=== PATIENT | male | born 1940 | race Caucasian/White ===

== ENCOUNTER 2019-09-02 18:53 | Inpatient (IN) | payer OTHER, SELFPAY ==
[~2019-09-02] VITALS: Ht 175.3 cm; Wt 90.3 kg
[2019-09-02 19:25] VITALS: BP_SYST 190
--- NOTE | 2019-09-02 19:25 | NUR ---
Patient to ER bed 3 to gown for evaluation. Side rails up.
--- NOTE | 2019-09-02 19:30 | NUR ---
PT BIB BLS FROM HOME A&O X4 C/O OF LOWER ABDOMINAL PAIN 8/10 FROM INABILITY TO URINATE. LAST TIME PT URINATED WAS MIDNIGHT. PT DRANK 4 WATER BOTTLES TO TRY TO HELP TO GO. PT HX OF NECK CANCER AND DIABETES. WILL CONTINUE OT MONITOR.
--- NOTE | 2019-09-02 20:00 | NUR ---
# 16 FR Zapata catheter with use of sterile technique. Immediate return of 1000 cc BLOOD TINGED urine noted. Bedside drainage bag placed below level of bladder. Urine sample collected and sent to lab. Pt tolerated procedure WELL. Patient unable to toilet self.
--- NOTE | 2019-09-02 20:03 | NUR ---
ER Dr. hubbard at bedside examining patient.
--- NOTE | 2019-09-02 20:05 | NUR ---
Patient transported to radiology via RNEY, accompanied by
--- NOTE | 2019-09-02 20:20 | NUR ---
PT RETURNED FROM CT. PLACED ON MONITOR.
[2019-09-02 20:48] LABS: BASOPHILS % (AUTO) 0.1 % (0.0-2.0); HEMATOCRIT 28.4 % (36-54); HEMOGLOBIN 9.5 g/dL (14.0-18.0); LYMPHOCYTES # (AUTO) 0.6 K/uL (1.0-5.5); MEAN CORPUSCULAR HEMOGLOBIN 34 pg (27-31); MEAN CORPUSCULAR HGB CONC 33 % (32-36); MEAN CORPUSCULAR VOLUME 103 fL (79.0-98.0); MONOCYTES # (AUTO) 0.4 K/uL (0.0-1.0); MONOCYTES % (AUTO) 5.2 % (1.7-9.3); NEUTROPHILS % (AUTO) 86.7 % (40.0-70.0); PLATELET COUNT (AUTO) 127 K/uL (130-430); RED BLOOD CELL COUNT(AUTO) 2.77 MIL/uL (4.2-6.2); RED CELL DISTRIBUTION WIDTH 15.3 % (9.0-15.0); WHITE BLOOD COUNT (AUTO) 6.9 K/uL (4.8-10.8)
--- NOTE | 2019-09-02 20:50 | NUR ---
SPOKE WITH MRS. HOPKINS AND UPDATED HER ON STATUS OF PATIENT PER PATIENT REQUEST. PHONE NUMBER IS
[2019-09-02 21:00] LABS: PROTHROMBIN TIME 9.7 SECS (9.5-12.5)
[2019-09-02] MEDS ORDERED: insulin (21:34)
--- NOTE | 2019-09-02 21:34 | NUR ---
Medication reconciliation completed with information provided by patient. Any prior medication reconciliation on file was reviewed and corrected.
--- NOTE | 2019-09-02 21:42 | NUR ---
RECEIVED ORDERS FROM DR. HAND.
[2019-09-02] MEDS ORDERED: metroNIDAZOLE 500 mg/NS 100 ML IV ONE (21:45)
[2019-09-02] MEDS ORDERED: PIPERACILLIN/TAZO 3.375 GM in NS 50 ML IV ONE (21:45)
[2019-09-02] MEDS ORDERED: D5LR 1,000 ML IV ONE (21:45)
--- NOTE | 2019-09-02 21:51 | NUR ---
CALLED FOR [employer].
--- NOTE | 2019-09-02 21:55 | NUR ---
Patient's code status is FULL CODE paperwork completed and placed in chart.
--- NOTE | 2019-09-02 21:59 | NUR ---
Dr. Morgan at bedside
--- NOTE | 2019-09-02 22:00 | NUR ---
# 20 gauge angiocath placed to RAC. Use of asceptic technique. Opsite placed over site. Blood return noted. Blood CULTURES for lab drawn from site. Flushed with 10 cc of normal saline. No evidence of infiltration noted. Patient tolerated well.
--- NOTE | 2019-09-02 22:10 | NUR ---
Blood cultures drawn, prior to administration of antibiotic.
[2019-09-02] MEDS ORDERED: PIPERACILLIN/TAZOBACTAM 3.375 GM/VIAL (ZOSYN) IV ONE (22:24)
--- NOTE | 2019-09-02 22:30 | NUR ---
COVID AND MRSA SWABS COLLECTED AND SENT TO LAB.
--- NOTE | 2019-09-02 22:40 | NUR ---
Patient will be admitted to care of DR. HAND. Admitted to MEDSURG unit. Will go to room 103A. Belongings list completed. Complete and up to date summary report printed. SBAR report given TO DENIA CORTEZ at bedside with opportunity for questions.
--- NOTE | 2019-09-02 22:41 | NUR ---
Transfer to [facility] via protocol. Licensed nurse present. IV present no signs or symptoms of infiltration.
--- NOTE | 2019-09-02 22:48 | NUR ---
SPOKE WITH , MRS. GUNTER TO UPDATE HER PT IS ADMITTED AND GOING TO ROOM 103A.
--- NOTE | 2019-09-02 22:51 | NUR ---
FLAGYL 500MG AND IV FLUIDS D5LR ENDORSED TO NURSE ON FLOOR TO ADMINISTER.
[2019-09-02 22:58] VITALS: BP_SYST 138
--- NOTE | 2019-09-02 22:58 | NUR ---
ADMISSION NOTE Received patient from ER via gurney. Patient admitted with diagnosis of Abdominal Pain. Patient is awake, alert, oriented X4. Patient oriented to hospital room, call light, toileting, pain management and safety-teach back done. Personal belongings checked and Belongings List documented. Call light within reach.
--- NOTE | 2019-09-02 23:00 | NUR ---
MD ROUNDS DR. HAND SEEN AND ASSESSED PATIENT.
[2019-09-02] MEDS ORDERED: metroNIDAZOLE 500 mg/NS 200 ML IV ONE (23:34)
--- NOTE | 2019-09-02 23:54 | NUR ---
MED PASS/ BS 193/ IVF HUNG DUE MEDICATION GIVEN AT THIS TIME. BS CHECKED WAS 193, 2 UNITS OF REGULAR INSULIN WAS GIVEN. PATIENT WAS EDUCATED ON PURPOSE, SIDE EFFECT AND BENEFITS OF THE MEDICATIONS THAT BEEN GIVEN, PATIENT ABLE TO VERBALIZED UNDERSTANDING. IVF INFUSING WELL, PATENCY NOTED. CALL LIGHT WITHIN REACH. SAFETY PRECAUTIONS IN PLACE. WILL CONTINUE TO MONITOR PATIENT.
[2019-09-02] MEDS: INSULIN REGULAR, HUMAN 100 UNITS/ML, 10 ML VIAL (humuLIN R) SUBCUT PRN (23:59)
[2019-09-03] VITALS: BP_SYST 110
[2019-09-03] MEDS ORDERED: MORPHINE 4 MG/ML INJ. SYRINGE IVP PRN
[2019-09-03] MEDS ORDERED: NALOXONE HCL 0.4 MG/ML AMP (NARCAN) IVP PRN ×2
[2019-09-03] MEDS ORDERED: MORPHINE 2 MG/ML INJ. SYRINGE IVP PRN ×2
[2019-09-03] MEDS ORDERED: ZOLPIDEM TARTRATE 5 MG TABLET PO PRN
[2019-09-03] MEDS ORDERED: ONDANSETRON HCL 4 MG/2 ML VIAL IVP PRN
[2019-09-03 00:18] LABS: BILIRUBIN,URINE NEGATIVE (NEGATIVE); BLOOD, URINE 3+ (NEGATIVE); CLARITY/URINE CLOUDY (CLEAR); COLOR,URINE RED (YELLOW); GLUCOSE,URINE TRACE (NEGATIVE); KETONES,URINE 1+ (NEGATIVE); LEUKOCYTE ESTERASE ,URINE 2+ (NEGATIVE); NITRITE, URINE POSITIVE (NEGATIVE); PROTEIN URINE 3+ (NEGATIVE)
[2019-09-03 00:26] VITALS: BP_SYST 138
[2019-09-03 00:33] LABS: BACTERIA,URINE MODERATE /HPF (None Seen); RBC,URINE >100 /HPF (0-3); WBC,URINE >100 /HPF (0-3)
[2019-09-03 00:35] LABS: ANION GAP 8 (5-15); CALCIUM 8.7 mg/dL (8.4-11.0); CHLORIDE 98 mmol/L (98-107); CREATININE 1.63 mg/dL (0.55-1.30); GLUCOSE 202 mg/dL (70-99); POTASSIUM 3.9 mmol/L (3.5-5.1); SODIUM SERUM 130 mmol/L (136-145); UREA NITROGEN, BLOOD 27 mg/dL (8-21)
[2019-09-03 00:39] LABS: ALANINE AMINOTRANSFERASE 24 U/L (12-78); ALBUMIN 3.1 g/dL (3.4-4.8); ASPARTATE AMINOTRANSFERASE 21 U/L (10-37); PHOSPHORUS 4.7 mg/dL (2.7-4.5); TOTAL BILIRUBIN 0.9 mg/dL (0.0-1.0)
--- NOTE | 2019-09-03 01:00 | NUR ---
SPOKE WITH MD DR. HAND MADE AWARE OF PATIENT OF PATIENTS COMPLAINT, BURNING SENSATION IN THE PRIVATE AREA AFTER GIVING IVF' PATIENT VERBALIZED TO STOP THE FLUID. PATIENT WAS EDUCATED ON PURPOSE AND BENEFITS OF D5LR (IVF) PATIENT STILL WANT TO STOP IV. MD MADE AWARE, DR. HAND VERBALIZED TO CONTINUE TO IVF. MD GAVE NEW ORDERS. WILL CARRY OUT. PATIENT WAS RE EDUCATED ON THE PURPOSE AND BENEFITS AND THE DOCTOR ORDERED. PATIENT ABLE TO VERBALIZED UNDERSTANDING. PATIENT OK TO CONTINUE IVF.
[2019-09-03] MEDS ORDERED: PHENAZOPYRIDINE HCL 100 MG TABLET PO ONE (01:15)
[2019-09-03] MEDS ORDERED: PHENAZOPYRIDINE HCL 100 MG TABLET ONE (01:30)
--- NOTE | 2019-09-03 02:20 | NUR ---
RN ROUNDS PATIENT ASLEEP AT THIS TIME. NO SIGNS OF RESPIRATORY DISTRESS AND DISCOMFORT NOTED. BREATHING EVEN AND UNLABORED. ON ROOM AIR TOLERATING WELL. IVF INFUSING WELL. SCD'S OPERATING WELL. MILLARD CATHETER, DRAINING BY GRAVITY. CALL LIGHT WITHIN REACH. SAFETY PRECAUTIONS IN PLACE. WILL CONTINUE TO MONITOR PATIENT.
--- NOTE | 2019-09-03 04:22 | NUR ---
Paged Dr. Terrazas for patient Ananth, Logan for low heart rate.
--- NOTE | 2019-09-03 04:23 | NUR ---
RN ROUNDS/ DECREASE HEART RATE PATIENT HEART SUSTAINING AT 40-43 AT THIS TIME. CHARGE NURSE MADE AWARE. WHEN PATIENT WAS AWAKEN, PATIENT RESPONDED WITH EYES CLOSED AND VERBALIZED ''I AM OK''. VITAL SIGNS TAKEN 116/60, O2 SAT OF 96%. RR 18, HR 43. AWAITING FOR MD CALL BACK. PATIENT HAS NO SIGNS OF RESPIRATORY DISTRESS NOTED. DENIES PAIN AT THIS TIME. IVF INFUSING WELL. CALL LIGHT WITHIN REACH. SAFETY PRECAUTIONS IN PLACE. WILL CONTINUE TO MONITOR PATIENT.
[2019-09-03] MEDS: metroNIDAZOLE 500 mg/NS 100 ML IV SCH ×3 (05:05→22:46)
--- NOTE | 2019-09-03 05:39 | NUR ---
SPOKE WITH MD/ TRANSFER TO TELE MD MADE AWARE OF PATIENTS' DECREASE HEART RATE. MD ORDERED PUT PATIENT CONTINUOS HEART MONITOR. MD ORDERED TRANSFER TO TELE. CHARGE NURSE MADE AWARE.
[2019-09-03] MEDS: INSULIN REGULAR, HUMAN 100 UNITS/ML, 10 ML VIAL (humuLIN R) SUBCUT PRN ×4 (06:12→20:18)
--- NOTE | 2019-09-03 06:27 | NUR ---
CLOSING NOTE/ BS 194 PATIENT AOX4. NO SIGNS OF RESPIRATORY DISTRESS AND DISCOMFORT NOTED. BREATHING EVEN AND UNLABORED. ON ROOM AIR, TOLERATING WELL. BS CHECKED DONE JX=152, 2 UNITS OF REGULAR INSULIN GIVEN FOR COVERAGE. PATIENT WAS EDUCATED ON MEDICATION THAT WAS GIVEN, PATIENT ABLE TO VERBALIZED UNDERSTANDING. IVF INFUSING WELL. MILLARD CATHETER, ATTACHED AND SECURED. DRAINING BY GRAVITY. SCD'S OPERATING WELL. CALL LIGHT WITHIN REACH. BED LOCKED AND IN LOWEST POSITION. SAFETY PRECAUTIONS IN PLACE. ALL NEEDS MET THROUGHOUT THE SHIFT. WILL CONTINUE TO MONITOR UNTIL ENDORSE TO ONCOMING SHIFT NURSE FOR CONTINUITY OF CARE.
--- NOTE | 2019-09-03 07:29 | NUR ---
CONSULT SURGERY GROSS HEMATURIA DR THAKUR,MALATHI [phone] DR THAKUR WAS NOTIFIED OF CONSULT
--- NOTE | 2019-09-03 07:30 | NUR ---
AM ROUNDS: PATIENT LYING ON THE BED,AWAKE,ALERT AND ORIENTED X3. IV FLUIDS RUNNING AT RIGHT AC INTACT. NOTHING BY MOUTH FOR NOW.MILLARD DRAINING REDDISH COLOR URINE. CALL LIGHT WITH IN REACH. BED LOCKED AT LOWEST [id number]. NOT IN ANY DISTRESS.
[2019-09-03 07:31] LABS: BASOPHILS % (AUTO) 0.1 % (0.0-2.0); EOSINOPHILS % (AUTO) 0.7 % (0.0-4.0); HEMATOCRIT 25.9 % (36-54); HEMOGLOBIN 8.8 g/dL (14.0-18.0); LYMPHOCYTES % (AUTO) 24.6 % (20.5-51.5); MEAN CORPUSCULAR HEMOGLOBIN 35 pg (27-31); MEAN CORPUSCULAR HGB CONC 34 % (32-36); MEAN CORPUSCULAR VOLUME 103 fL (79.0-98.0); MONOCYTES # (AUTO) 0.4 K/uL (0.0-1.0); NEUTROPHILS # (AUTO) 2.8 K/uL (1.8-7.7); NEUTROPHILS % (AUTO) 65.6 % (40.0-70.0); PLATELET COUNT (AUTO) 123 K/uL (130-430); RED BLOOD CELL COUNT(AUTO) 2.52 MIL/uL (4.2-6.2); RED CELL DISTRIBUTION WIDTH 15.6 % (9.0-15.0); RETICULOCYTE COUNT 2.8 % (0.5-1.5); WHITE BLOOD COUNT (AUTO) 4.2 K/uL (4.8-10.8)
[2019-09-03 08:23] LABS: ALANINE AMINOTRANSFERASE 20 U/L (12-78); ALBUMIN 2.9 g/dL (3.4-4.8); ANION GAP 5 (5-15); ASPARTATE AMINOTRANSFERASE 21 U/L (10-37); CALCIUM 8.6 mg/dL (8.4-11.0); CHLORIDE 103 mmol/L (98-107); CREATININE 1.86 mg/dL (0.55-1.30); GLUCOSE 205 mg/dL (70-99); PHOSPHORUS 4.8 mg/dL (2.7-4.5); POTASSIUM 3.9 mmol/L (3.5-5.1); SODIUM SERUM 137 mmol/L (136-145); TOTAL BILIRUBIN 0.7 mg/dL (0.0-1.0); UREA NITROGEN, BLOOD 29 mg/dL (8-21)
[2019-09-03 08:27] VITALS: BP_SYST 115
[2019-09-03] MEDS: PHENAZOPYRIDINE HCL 100 MG TABLET PO SCH ×3 (09:14→20:15)
[2019-09-03] MEDS: CIPROFLOXACIN LACT 400 MG/D5W 200 ML IV SCH ×2 (09:15→20:15)
[2019-09-03] MEDS: D5LR 1,000 ML IV SCH ×3 (09:16→23:10)
[2019-09-03] MEDS ORDERED: TAMSULOSIN HCL 0.4 MG CAP PO ONE (10:15)
--- NOTE | 2019-09-03 10:34 | NUR ---
CONSULTATION PAGED REASON FOR CONSULTATION:URINARY RETENTION WAS CONSULT CALLED?Y PERSON WHO WAS NOTIFIED:DRAKE CONSULTING PHYSICIAN:ANTONY FOSS GREASE MAN SPECIALTY:UROLOGY GREASE MAN PHONE NUMBER:[phone] ORDERING PHYSICIAN:RUI NOLASCO
[2019-09-03 11:29] VITALS: BP_SYST 119
--- NOTE | 2019-09-03 12:01 | NUR ---
Blood Sugar: Blood sugar taken,with insulin given per sliding scale.
--- NOTE | 2019-09-03 14:10 | NUR ---
RN ROUNDS: PATIENT ON HIGH WU'S ,EATING LUNCH. NO DISTRESS.
[2019-09-03 15:34] VITALS: BP_SYST 128
--- NOTE | 2019-09-03 15:46 | NUR ---
CATHETER SALINE IRRIGATION: DR Luis Fernando LOOMIS CAME AND DID 60MIL SALINE IRRIGATION TO THE MILLARD CATHETER.URINE STILL RED IN COLOR BUT FLOWING WELL.
--- NOTE | 2019-09-03 17:30 | NUR ---
BLOOD SUGAR: BLOOD SUGAR TAKEN,WITH INSULIN GIVEN PER SLIDING SCALE. NO PROBLEM.
--- NOTE | 2019-09-03 18:53 | NUR ---
CLOSING NOTES: PATIENT ATE DINNER WELL. MILLARD STILL DRAINING REDDISH COLOR URINE,FLOWING WELL.CALL LIGHT WITH IN REACH. BED LOCKED AT LOWEST POSITION. CONDITION GUARDED.
--- NOTE | 2019-09-03 19:15 | NUR ---
Initial Notes: Received report from dayshift RN. Patient is in bed, watching TV. No acute distress. Breathing is even and nonlabored on room air. IV site is patent and intact. IV fluids infusing as ordered. Zapata draining clear, light red urine to gravity. Bed is locked at lowest position. Side rails up. Call light is with patient. Safety and fall precautions in place. Will continue plan of care.
[2019-09-03 20:00] VITALS: BP_SYST 128
[2019-09-03] MEDS: TAMSULOSIN HCL 0.4 MG CAP PO SCH (20:15)
--- NOTE | 2019-09-03 21:30 | NUR ---
Rounds: Patient in bed, watching TV. No signs of acute distress. Breathing is even and nonlabored on room air. Call light is with patient. Safety and fall precautions in place. Will continue to monitor.
--- NOTE | 2019-09-04 00:05 | NUR ---
Rounds: Patient in bed, sleeping. No s/s of acute distress. Respirations are even and nonlabored on room air. Call light is with patient. Safety and fall precautions in place. Will continue monitoring.
[2019-09-04 01:46] VITALS: BP_SYST 122
--- NOTE | 2019-09-04 02:06 | NUR ---
Rounds: Patient is sleeping in bed. No acute distress. Tolerating room air. Even, nonlabored respirations. Call light is with patient. Safety and fall precautions in place. Will continue to monitor.
--- NOTE | 2019-09-04 04:15 | NUR ---
Rounds: Patient is sleeping in bed. No s/s of acute distress. Respirations are even and nonlabored on room air. Call light is with patient. Safety and fall precautions in place. Will continue to monitor.
[2019-09-04] MEDS: metroNIDAZOLE 500 mg/NS 100 ML IV SCH ×3 (06:16→23:26)
[2019-09-04] MEDS: D5LR 1,000 ML IV SCH ×3 (06:17→23:27)
[2019-09-04] MEDS: INSULIN REGULAR, HUMAN 100 UNITS/ML, 10 ML VIAL (humuLIN R) SUBCUT PRN ×4 (06:18→21:43)
[2019-09-04 06:22] LABS: BASOPHILS % (AUTO) 0.2 % (0.0-2.0); EOSINOPHILS # (AUTO) 0.1 K/uL (0.0-0.4); HEMATOCRIT 23.5 % (36-54); LYMPHOCYTES # (AUTO) 0.9 K/uL (1.0-5.5); LYMPHOCYTES % (AUTO) 33.7 % (20.5-51.5); MEAN CORPUSCULAR HEMOGLOBIN 35 pg (27-31); MEAN CORPUSCULAR HGB CONC 34 % (32-36); MEAN CORPUSCULAR VOLUME 103 fL (79.0-98.0); MONOCYTES # (AUTO) 0.3 K/uL (0.0-1.0); MONOCYTES % (AUTO) 9.4 % (1.7-9.3); NEUTROPHILS # (AUTO) 1.4 K/uL (1.8-7.7); NEUTROPHILS % (AUTO) 53.7 % (40.0-70.0); PLATELET COUNT (AUTO) 104 K/uL (130-430); RED BLOOD CELL COUNT(AUTO) 2.28 MIL/uL (4.2-6.2); RED CELL DISTRIBUTION WIDTH 15.4 % (9.0-15.0); WHITE BLOOD COUNT (AUTO) 2.7 K/uL (4.8-10.8)
[2019-09-04 06:44] LABS: ALANINE AMINOTRANSFERASE 19 U/L (12-78); ALBUMIN 2.6 g/dL (3.4-4.8); ANION GAP 4 (5-15); ASPARTATE AMINOTRANSFERASE 18 U/L (10-37); CALCIUM 8.3 mg/dL (8.4-11.0); CHLORIDE 107 mmol/L (98-107); CREATININE 1.72 mg/dL (0.55-1.30); GLUCOSE 189 mg/dL (70-99); POTASSIUM 4.1 mmol/L (3.5-5.1); SODIUM SERUM 140 mmol/L (136-145); TOTAL BILIRUBIN 0.5 mg/dL (0.0-1.0); UREA NITROGEN, BLOOD 23 mg/dL (8-21)
--- NOTE | 2019-09-04 06:44 | NUR ---
Closing notes: Patient is in bed, sleeping. No acute distress. Tolerating room air. Even, nonlabored breathing. IV site is patent and intact. IV fluids infusing as ordered. Zapata is draining clear, yellow, blood tinged urine to gravity. All needs met. Bed is locked at lowest position. Side rails up x2. Call light is with patient. Safety and fall precautions in place. Will endorse care to dayshift RN.
--- NOTE | 2019-09-04 07:29 | NUR ---
INITIAL NOTE RECEIVED PT IN BED, NO S/S OF DISTRESS OR SOB NOTED, PT HAS NO C/O PAIN AT THIS TIME. PT AAOX4, VERBAL. IV CATHETER PATENT, NO SIGNS OF INFECTION OR INFILTRATION NOTED, RUNNING IV FLUIDS ORDERED. BED AT LOWEST POSITION, CALL LIGHT WITHIN REACH, WILL CONTINUE TO MONITOR PT FOR ANY CHANGES, FALL AND SAFETY PRECAUTIONS IN PLACE. PT REFUSED TO HAVE BILATERAL SCD'S IN PLACE, EDUCATED PT ON USE TO PREVENT DVT, PT VERBALIZED UNDERSTANDING BUT CONTINUES TO REFUSE. F/C DRAINING VIA GRAVITY, YELLOW URINE. Addendum: 09/04/19 at 0807 by Tiffanie Preston RN NOTED URINE DARK IN COLOR, TAD
[2019-09-04] MEDS: PHENAZOPYRIDINE HCL 100 MG TABLET PO SCH ×3 (08:23→21:43)
[2019-09-04] MEDS: TAMSULOSIN HCL 0.4 MG CAP PO SCH ×2 (08:23→21:43)
[2019-09-04] MEDS: CIPROFLOXACIN LACT 400 MG/D5W 200 ML IV SCH ×2 (08:23→21:42)
--- NOTE | 2019-09-04 08:23 | NUR ---
Nutrition Update Deon Scale 17 noted. Pt admitted for Abdominal pain Diet: Soft Low Fiber [place] BMI: 29.4 kg/m2 RD to follow per nutrition care standards.
[2019-09-04 08:30] VITALS: BP_SYST 115
[2019-09-04] MEDS: FINASTERIDE 5 MG TABLET (PROSCAR) PO SCH (09:55)
--- NOTE | 2019-09-04 10:34 | NUR ---
ROUNDS PT IN BED, NO S/S OF DISTRESS OR SOB NOTED, PT HAS NO C/O PAIN AT THIS TIME, PT IN STABLE CONDITION. PT RESTING COMFORTABLY, WILL CONTINUE TO MONITOR PT FOR ANY CHANGES. PT WATCHING TV.
[2019-09-04 11:06] LABS: FREE PSA 1.72 ng/mL
[2019-09-04 12:00] VITALS: BP_SYST 142
[2019-09-04 16:43] VITALS: BP_SYST 147
--- NOTE | 2019-09-04 16:48 | NUR ---
CONSULTATION PAGED REASON FOR CONSULTATION:HB WAS CONSULT CALLED?Y PERSON WHO WAS NOTIFIED:BASIM CONSULTING PHYSICIAN:ODELL HANSON (KACEY MEDEROS SPINNING SUPERVISOR) ELECTRIC CLOCK MECHANIC SPECIALTY:CARDIO ELECTRIC CLOCK MECHANIC PHONE NUMBER:[phone] REQUESTING PHYSICIAN:NANCY NOLASCO
--- NOTE | 2019-09-04 18:34 | NUR ---
CLOSING NOTE PT IN BED, NO S/S OF DISTRESS OR SOB NOTED, PT HAS NO C/O PAIN AT THIS TIME. PT AAOX4, VERBAL. IV CATHETER PATENT, NO SIGNS OF INFECTION OR INFILTRATION NOTED, RUNNING IV FLUIDS ORDERED. BED AT LOWEST POSITION, CALL LIGHT WITHIN REACH, WILL ENDORSE CARE OF PT TO INCOMING NURSE, FALL AND SAFETY PRECAUTIONS IN PLACE. PT REFUSED TO HAVE BILATERAL SCD'S IN PLACE, F/C DRAINING VIA GRAVITY, URINE TAD IN COLOR. NEEDS MET THROUGHOUT SHIFT.
--- NOTE | 2019-09-04 19:30 | NUR ---
Initial Notes: Received report from jarod RN. Patient is in bed, resting. No acute distress. Breathing is even and nonlabored on room air. IV site is patent and intact. IV fluids infusing as ordered. Zapata draining clear, paulo urine to gravity. Bed is locked at lowest position. Side rails up. Call light is with patient. Safety and fall precautions in place. Will continue plan of care.
[2019-09-04 20:00] VITALS: BP_SYST 151
--- NOTE | 2019-09-04 21:50 | NUR ---
Rounds: Patient is in bed, resting. No s/s of acute distress. Tolerating room air. Respirations even and nonlabored. Call light is with patient. Safety and fall precautions in place. Will continue to monitor.
[2019-09-05] VITALS: BP_SYST 155
--- NOTE | 2019-09-05 | NUR ---
Rounds: Patient is sleeping in bed. No s/s of acute distress. Breathing is even and nonlabored on room air. Call light is with patient. Safety and fall precautions in place. Will continue monitoring.
--- NOTE | 2019-09-05 02:15 | NUR ---
Rounds: Patient is in bed, sleeping. No acute distress. Even and nonlabored respirations on room air. Call light is with patient. Safety and fall precautions in place. Will continue to monitor.
--- NOTE | 2019-09-05 04:30 | NUR ---
Rounds: Patient is in bed, sleeping. No signs acute distress. Even and nonlabored breathing on room air. Call light is with patient. Safety and fall precautions in place. Will continue to monitor.
[2019-09-05 06:37] LABS: BASOPHILS % (AUTO) 0.1 % (0.0-2.0); EOSINOPHILS # (AUTO) 0.1 K/uL (0.0-0.4); EOSINOPHILS % (AUTO) 2.5 % (0.0-4.0); HEMATOCRIT 24.1 % (36-54); HEMOGLOBIN 8.1 g/dL (14.0-18.0); LYMPHOCYTES # (AUTO) 0.9 K/uL (1.0-5.5); LYMPHOCYTES % (AUTO) 30.6 % (20.5-51.5); MEAN CORPUSCULAR HEMOGLOBIN 35 pg (27-31); MEAN CORPUSCULAR HGB CONC 34 % (32-36); MEAN CORPUSCULAR VOLUME 103 fL (79.0-98.0); MONOCYTES # (AUTO) 0.3 K/uL (0.0-1.0); MONOCYTES % (AUTO) 10.3 % (1.7-9.3); NEUTROPHILS # (AUTO) 1.7 K/uL (1.8-7.7); NEUTROPHILS % (AUTO) 56.5 % (40.0-70.0); PLATELET COUNT (AUTO) 107 K/uL (130-430); RED BLOOD CELL COUNT(AUTO) 2.33 MIL/uL (4.2-6.2); RED CELL DISTRIBUTION WIDTH 15.2 % (9.0-15.0)
[2019-09-05] MEDS: metroNIDAZOLE 500 mg/NS 100 ML IV SCH ×2 (06:43→14:30)
[2019-09-05] MEDS: INSULIN REGULAR, HUMAN 100 UNITS/ML, 10 ML VIAL (humuLIN R) SUBCUT PRN ×4 (06:45→21:38)
--- NOTE | 2019-09-05 06:50 | NUR ---
Closing note: Patient in bed, resting. No signs of acute distress. Even, nonlabored breathing on room air. IV site patent and intact. IVF infusing as ordered. Zapata is draining clear, paulo urine to gravity. All needs met. Bed is locked at lowest position. Siderails up x2. Call light is with patient. Safety and fall precautions in place. Will endorse care to dayshift RN.
[2019-09-05 07:34] LABS: ANION GAP 3 (5-15); CALCIUM 8.4 mg/dL (8.4-11.0); CHLORIDE 106 mmol/L (98-107); CREATININE 1.66 mg/dL (0.55-1.30); GLUCOSE 223 mg/dL (70-99); POTASSIUM 4.5 mmol/L (3.5-5.1); SODIUM SERUM 139 mmol/L (136-145); THYROID STIMULATING HORMONE 4.45 uIu/mL (0.36-3.74); UREA NITROGEN, BLOOD 22 mg/dL (8-21)
--- NOTE | 2019-09-05 07:45 | NUR ---
report received from Andres LOZA. PT is AAOx3. Pt is forgetful at times. Zapata cath is to gravity draining paulo, clear urine. IV is to the LAC running LR@120. Will continue to monitor.
[2019-09-05 08:00] VITALS: BP_SYST 147
--- NOTE | 2019-09-05 08:15 | NUR ---
pt is having breakfast in bed. Call light is within reach
[2019-09-05] MEDS: PHENAZOPYRIDINE HCL 100 MG TABLET PO SCH ×3 (09:37→21:34)
[2019-09-05] MEDS: D5LR 1,000 ML IV SCH ×3 (09:37→21:41)
[2019-09-05] MEDS: FINASTERIDE 5 MG TABLET (PROSCAR) PO SCH (09:37)
[2019-09-05] MEDS: TAMSULOSIN HCL 0.4 MG CAP PO SCH ×2 (09:37→21:35)
[2019-09-05] MEDS: CIPROFLOXACIN LACT 400 MG/D5W 200 ML IV SCH (11:37)
[2019-09-05 12:00] VITALS: BP_SYST 151
--- NOTE | 2019-09-05 12:00 | NUR ---
Current accu check is 273. Covered with 6 units of regular insulin
--- NOTE | 2019-09-05 14:24 | NUR ---
DC Planning: notified via phone and faxed the dcp order [facility] de[facility] this am @ 0830 but no returning call from [facility]. I called/LVM again at 1425 requesting HH and f/u appointment set up. Addendum: 09/05/19 at 1438 by Julien Greenwood RN >> Per Ayah/DEMETRICE, found an assigned CM/Argelia, who will be calling me back to discuss the discharge order. Addendum: 09/05/19 at 1652 by Julien Greenwood RN >> Late entry: I called Kuldeep/[facility] dept several times since 1500, the phone I was put on hold , no answer until the call dropped. So far , there is no call back from Argelia or any CM form [facility]. I LVM to pt's spouse/Colleze that the HH is not set up. I will contact [place] tomorrow. CHOLO Obrien made aware and may update Colleze as needed.
[2019-09-05 16:00] VITALS: BP_SYST 126
--- NOTE | 2019-09-05 16:50 | NUR ---
Dr. Terrazas is speaking w/ the pt at the bedside
--- NOTE | 2019-09-05 17:10 | NUR ---
Current accu check is 239. Covered w/ 4 units of regular insulin.
--- NOTE | 2019-09-05 17:18 | NUR ---
[facility] PAGED AT [phone] SPOKE WITH MARVIN WILLINGHAM ELIGIBILITY SPECIALIST.
--- NOTE | 2019-09-05 18:20 | NUR ---
Spoke w/ Dr. Jeanette PERALES will see the pt quang.
--- NOTE | 2019-09-05 19:08 | NUR ---
pt remains in stable condition. Will endorse care to the oncoming nurse
--- NOTE | 2019-09-05 19:25 | NUR ---
OPENING NOTES Patient is resting in bed, no signs of distress or respiratory distress observed, no signs of pain. IV site patent, dressings c/d/i. Call light within reach, bed alarm on, Bed at lowest position. Zapata catheter draining by gravity, no kinks, no loops, bag not touching the floor, paulo, clear urine noted. Will continue to monitor.
[2019-09-05 20:00] VITALS: BP_SYST 145
--- NOTE | 2019-09-05 20:00 | NUR ---
DR. PERAZA AT [facility]. Addendum: 09/06/19 at 0739 by Marques Alvarado RN CORRECT TIME - 2200
[2019-09-05] MEDS: CIPROFLOXACIN HCL 500 MG TABLET PO SCH (21:35)
[2019-09-06] VITALS: BP_SYST 147
--- NOTE | 2019-09-06 00:06 | NUR ---
Patient is asleep, no signs of distress observed, call light within reach, will continue to monitor.
--- NOTE | 2019-09-06 04:11 | NUR ---
Incontinence care provided, no signs of distress observed, patient helps turn. Will continue to monitor.
[2019-09-06] MEDS: INSULIN REGULAR, HUMAN 100 UNITS/ML, 10 ML VIAL (humuLIN R) SUBCUT PRN ×2 (06:40→12:27)
--- NOTE | 2019-09-06 07:08 | NUR ---
CLOSING NOTES Patient is resting in bed, no signs of distress or respiratory distress observed, no signs of pain. IV site patent, dressings c/d/i, IVF running. Call light within reach, bed alarm on, bed at lowest position. All needs met throughout shift. Will endorse care to oncoming shift.
[2019-09-06 08:00] VITALS: BP_SYST 161
--- NOTE | 2019-09-06 08:00 | NUR ---
A/Ox4,hard of hearing,afebrile,vss,IVF continue infusing,IV site patent and intact,F/C drains paulo yellow urine no clots noted needs attended,call light & personal items within pt reach,safety maintained.
[2019-09-06] MEDS: PHENAZOPYRIDINE HCL 100 MG TABLET PO SCH (09:02)
[2019-09-06] MEDS: TAMSULOSIN HCL 0.4 MG CAP PO SCH (09:02)
[2019-09-06] MEDS: CIPROFLOXACIN HCL 500 MG TABLET PO SCH (09:02)
[2019-09-06] MEDS: FINASTERIDE 5 MG TABLET (PROSCAR) PO SCH (09:08)
--- NOTE | 2019-09-06 10:41 | NUR ---
DC Planning: Called [facility]/[place] # [phone], per Lashell /compliance quality performance analyst , received dc order sent yesterday. The assigned cm/ Re will be calling me back to arrange the HH and f/u appointments.
--- NOTE | 2019-09-06 12:00 | NUR ---
pt sleeping quietly in bed,no acute distress noted.hourly rounds made,safety maintained.
--- NOTE | 2019-09-06 12:00 | NUR ---
vss,accucheck 178 mg/dl.give 2 units regular insulin as per sliding scale,top case assembler came and seen pt at bedside home health for reaves cath care arranged by top case assembler.
[2019-09-06] MEDS ORDERED: CIPR-172 PO (12:35)
[2019-09-06] MEDS ORDERED: L.RH1CAP PO (12:36)
[2019-09-06 12:46] VITALS: BP_SYST 148
--- NOTE | 2019-09-06 13:21 | NUR ---
d/c home as per dr dee,d/c IV,d/c monitor and storage bin tender,pt going home with reaves catheter d/t urinary retention.leaving w/c taken home by .
--- NOTE | 2019-09-08 13:45 | NUR ---
Discharge Follow Up Phone Call DONOR RELATIONS OFFICER phoned patient, , and spoke with patient's , Lola. Lola stated that patient is much improved. They have made contact with patient's PCP and his office is working on follow up appointments with the urologist and sales supervisor. He will see his oncologist next week. The home health/palliative care nurse has been to the home. They filled patient's Cipro prescription and he is taking all medications as directed. Discussed that the urologist's note indicated that patient's catheter should be removed by a urologist or PCP in one week. will be sure to follow up. No other questions or concerns.
== END 2019-09-06 13:39 | disposition home health service (06) | DRG 394 ==
LOC: SED 18:53 → SMU 21:55 → STU 09-03 05:48
PROVIDERS: ADMIT Internal Medicine; ATTEND Internal Medicine
DX: K63.1 Perforation of intestine (nontraumatic) (principal); E44.1 Mild protein-calorie malnutrition; N40.1 Benign prostatic hyperplasia with lower urinary tract symptoms; D64.9 Anemia, unspecified; E11.9 Type 2 diabetes mellitus without complications; I44.0 Atrioventricular block, first degree; K59.00 Constipation, unspecified; Z20.828 Contact with and (suspected) exposure to other viral communicable diseases; N30.91 Cystitis, unspecified with hematuria; R33.9 Retention of urine, unspecified; Z79.899 Other long term (current) drug therapy; Z85.72 Personal history of non-Hodgkin lymphomas; Z85.821 Personal history of Merkel cell carcinoma; Z92.21 Personal history of antineoplastic chemotherapy; Z92.3 Personal history of irradiation; Z90.49 Acquired absence of other specified parts of digestive tract; Z68.29 Body mass index [BMI] 29.0-29.9, adult
CPT/HCPCS: 36415; 71045; 80048; 80053; 81000-TC; 82962; 83735-TC; 84100-TC; 84153; 84439; 84443-TC; 85025; 85044-TC; 85610-TC; 85730-TC; 87040-TC; 87081; 87086; 93005; 96365; 99285; G0378; J0744; J1815; J2270; J2543; J3490; J7120; U0003-CS